=== PATIENT | male | born 1975 | race Caucasian/White ===

== ENCOUNTER 2017-10-05 07:15 | Emergency (ER) | payer OTHER ==
[2017-10-05 07:54] VITALS: RESP 18
[2017-10-05 08:05] VITALS: BMI 21.2
[2017-10-05 08:15] VITALS: BP 103/70; PULSE 78; TEMP 97.8; O2SAT 98
--- NOTE | 2017-10-05 08:54 | ED PDOC ---
Arrival/HPI - General Chief Complaint: Flu-like Symptoms Time Seen by Provider: 10/05/17 08:53 Historian: Patient - History of Present Illness Time/Duration: Other (5 days) Symptom Onset: Gradual Symptom Course: Unchanged Quality: Aching Severity Level: Moderate Associated Symptoms (Text): 10/05/17 08:53 Patient complains of a five-day history of a cough productive of yellow sputum congestion and URI symptoms feeling feverish with chills. No dyspnea. No chest pain. No abdominal pain vomiting or diarrhea. Past Medical History - Infectious Disease Hx of Infectious Diseases: None - Tetanus Immunization Tetanus Immunization: Unknown - Past Medical History Past Medical History: No Previous - Psychiatric Hx Depression: No Hx Emotional Abuse: No Hx Physical Abuse: No Hx Substance Use: No - Surgical History Hx Orthopedic Surgery: Yes (left wrist) - Anesthesia Hx Anesthesia Reactions: No Hx Malignant Hyperthermia: No - Suicidal Assessment Feels Threatened In Home Enviroment: No Family/Social History - Physician Review Nursing Documentation Reviewed: Yes Family/Social History: Unknown Family HX Smoking Status: Never Smoked Hx Alcohol Use: No Hx Substance Use: No Hx Substance Use Treatment: No Allergies/Home Meds Allergies/Adverse Reactions: Allergies No Known Allergies Allergy (Verified 01/08/16 07:47) Review of Systems - Physician Review All systems were reviewed & negative as marked: Yes - Review of Systems Constitutional: Fevers Respiratory: Cough, Sputum. absent: SOB, Wheezing Cardiovascular: absent: Chest Pain Gastrointestinal: absent: Abdominal Pain, Nausea, Vomiting Physical Exam Vital Signs Temp Pulse Resp BP Pulse Ox 10/05/17 07:15 97.8 F 78 18 103/70 98 Temperature: Afebrile Blood Pressure: Normal Pulse: Regular Respiratory Rate: Normal Appearance: Positive for: Well-Appearing, Non-Toxic, Comfortable Pain Distress: None Mental Status: Positive for: Alert and Oriented X 3 - Systems Exam Pupils: Present: PERRL Extroacular Muscles: Present: EOMI Conjunctiva: Present: Normal Ears: Present: NORMAL TM, Normal Canal. No: Erythema, TM Bulging Mouth: Present: Moist Mucous Membranes Pharnyx: No: ERYTHEMA, EXUDATE, TONSILS ENLARGED Nose (Internal): Present: Other (congested) Neck: Present: Normal Range of Motion Respiratory/Chest: Present: Clear to Auscultation, Good Air Exchange. No: Respiratory Distress, Accessory Muscle Use Cardiovascular: Present: Regular Rate and Rhythm, Normal S1, S2. No: Murmurs Skin: Present: Warm, Dry, Normal Color. No: Rashes Disposition/Present on Arrival - Present on Arrival Any Indicators Present on Arrival: No History of DVT/PE: No History of Uncontrolled Diabetes: No Urinary Catheter: No History of Decub. Ulcer: No History Surgical Site Infection Following: None - Disposition Have Diagnosis and Disposition been Completed?: Yes Diagnosis: Bronchitis, Upper respiratory infection Disposition: HOME/ ROUTINE Disposition Time: 08:55 Patient Plan: Discharge Condition: GOOD Discharge Instructions (ExitCare): Acute Bronchitis (ED), Upper Respiratory Infection (ED) Additional Instructions: Symptomatic treatment. Tylenol or Advil as directed on bottle as needed. Follow- up with PMD. Follow up in ER as needed. Prescriptions: Benzonatate [Tessalon Perles] 100 mg PO Q8 #30 sgl Azithromycin [Zithromax] 250 mg PO DAILY #6 tab Forms: [facility] (Portuguese), WORK NOTE
== END 2017-10-05 09:23 | disposition home or self-care (01) ==
LOC: ED 07:15
DX: J40 Bronchitis, not specified as acute or chronic (principal); J06.9 Acute upper respiratory infection, unspecified

== ENCOUNTER 2018-10-30 13:23 | Emergency (ER) | payer OTHER ==
[2018-10-30 13:23] VITALS: BMI 21.2
== END 2018-10-30 14:10 | disposition left against medical advice (07) ==
LOC: ED 13:23
DX: Z02.89 Encounter for other administrative examinations (principal)

== ENCOUNTER 2018-12-01 16:24 | Emergency (ER) | payer OTHER ==
[2018-12-01 16:38] VITALS: BP 134/92; PULSE 73; RESP 18; TEMP 97.8; O2SAT 97; BMI 23.1
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
--- NOTE | 2018-12-01 17:58 | RAD ---
Date of service: 12/01/2018 PROCEDURE: Left Wrist Radiographs. HISTORY: hand injury COMPARISON: None. FINDINGS: BONES: Bone alignment and mineralization are normal. There is no acute displaced fracture or bone destruction. There is an old fracture deformity in the styloid process of ulna. JOINTS: Normal. No dislocation. SOFT TISSUES: Normal. OTHER FINDINGS: None. IMPRESSION: No acute displaced fracture or dislocation.
--- NOTE | 2018-12-01 18:02 | RAD ---
PROCEDURE: Left Hand Radiographs. HISTORY: lt. hand pain from injury COMPARISON: None. FINDINGS: BONES: Bone alignment and mineralization are normal. There is no acute displaced fracture or bone destruction. There is an old fracture deformity in the styloid process of ulna. 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 The remaining joint spaces are preserved. SOFT TISSUES: Normal. OTHER FINDINGS: None. IMPRESSION: No acute displaced fracture or dislocation.
== END 2018-12-01 17:57 | disposition home or self-care (01) ==
LOC: ED 16:24 → UNMERGE 16:24 → MERGE 16:24 → ED 17:57
DX: S60.222A Contusion of left hand, initial encounter (principal); W22.8XXA Striking against or struck by other objects, initial encounter